=== PATIENT | female | born 1970 | race Hispanic/Latino ===

== ENCOUNTER → 2025-03-06 | Day surgery (SDC) | payer BC, OTHER ==
[~2025-03-06] MED LIST: FISH OIL 1,0001 EAC7 PO; GLUCAGON FOR INJ 1 MG VIAL ONE; HYOSCYAMINE SULFATE 0.5 MG/ML INJ ONE; IBUPROFEN200 MG PO; LIDOCAINE HCL 2% LOCAL INJ 5 ML SDV VIAL INJ ONE; ONE DAILY COMP1 EACH PO; PROPOFOL IV EMULSION 50 ML IV ONE; PROTONIX20 MG PO; SENNA8.6 MG PO; TENORMIN25 MG PO; TIZANIDINE HCL2 M1 PO
[2025-03-06] MEDS: LACTATED RINGER'S 1,000 ML ONE (11:57)
[2025-03-06 14:27] VITALS: TEMP 97.7
[2025-03-06 15:10] VITALS: BP 145/85; PULSE 72; RESP 16; O2SAT 99
== END | disposition home or self-care (01) ==
LOC: OR 11:20
PROVIDERS: ATTEND Internal Medicine Gastroenterology
DX: Z12.11 Encounter for screening for malignant neoplasm of colon (principal); D12.8 Benign neoplasm of rectum; K29.50 Unspecified chronic gastritis without bleeding; K57.30 Diverticulosis of large intestine without perforation or abscess without bleeding; K21.00 Gastro-esophageal reflux disease with esophagitis, without bleeding; K59.09 Other constipation; K64.4 Residual hemorrhoidal skin tags; K62.5 Hemorrhage of anus and rectum; K64.8 Other hemorrhoids; I10 Essential (primary) hypertension; Z71.89 Other specified counseling; Z01.810 Encounter for preprocedural cardiovascular examination; Z79.1 Long term (current) use of non-steroidal anti-inflammatories (NSAID); Z79.899 Other long term (current) drug therapy; Z68.28 Body mass index [BMI] 28.0-28.9, adult; Z71.3 Dietary counseling and surveillance; Z86.19 Personal history of other infectious and parasitic diseases
CPT/HCPCS: 43239; 45378; 45385; 93005; J1610; J1980; J2003; J2470